=== PATIENT | male | born 1985 | race Caucasian/White ===

== ENCOUNTER 2022-09-03 11:29 | Inpatient (IN) | payer MEDICAID ==
[~2022-09-03] VITALS: Ht 167.6 cm; Wt 83.9 kg
[2022-09-03] MEDS ORDERED: SODIUM CHLORIDE 0.9% 1,000 ML IV ONE (15:30)
[2022-09-03 16:33] LABS: PROTHROMBIN TIME 10.9 sec (9.6-11.0)
[2022-09-03 16:35] LABS: BASOPHILS % 0.4 % (0.0-2.0); EOSINOPHILS % 1.5 % (0.0-5.0); HEMOGLOBIN. 16.8 g/dL (14.0-18.0); LYMPHOCYTES % 41.1 % (20.0-50.0); MEAN CORPUSCULAR HEMOGLOBIN 31.4 pg (28.0-32.0); MEAN CORPUSCULAR VOLUME 89.6 fL (80.0-94.0); MEAN PLATELET VOLUME 7.8 fl (7.4-10.4); MONOCYTES % 8.2 % (2.0-8.0); NEUTROPHILS % 48.8 % (40.0-76.0); PLATELET 251 x1000/uL (130-400); RED BLOOD CELL COUNT 5.35 mill/uL (4.7-6.1); RED CELL DISTRIBUTION WIDTH 13.1 % (11.6-14.6)
[2022-09-03 16:44] LABS: CHLORIDE 105 mEq/L (98-107)
[2022-09-03 16:56] LABS: TOTAL IRON BINDING CAPACITY 339 ug/dL (250-450)
[2022-09-03] MEDS: PANTOPRAZOLE SODIUM 40 MG/VIAL IV SCH (17:13)
[2022-09-03] MEDS ORDERED: ONDANSETRON HCL 4MG/2ML INJ IV PRN (17:30)
[2022-09-03] MEDS ORDERED: CLONIDINE 0.1MG TABLET PO PRN (17:30)
[2022-09-03] MEDS ORDERED: ACETAMINOPHEN 325MG TABLET PO PRN ×2 (17:30)
[2022-09-03 18:14] LABS: HEMATOCRIT 42.2 % (42.0-52.0); HEMOGLOBIN 14.9 g/dL (14.0-18.0)
[2022-09-03 18:20] LABS: FERRITIN 95 ng/mL (22-322)
[2022-09-03 20:24] LABS: CLARITY URINE CLEAR (CLEAR); COLOR URINE YELLOW (YELLOW); KETONES URINE NEGATIVE (NEGATIVE); LEUKOCYTE ESTERASE URINE NEGATIVE (NEGATIVE); NITRITE URINE NEGATIVE (NEGATIVE); OCCULT BLOOD URINE NEGATIVE (NEGATIVE); PH URINE 5.5 (4.5-8.0); PROTEIN URINE NEGATIVE (NEGATIVE); SPECIFIC GRAVITY URINE 1.018 (1.005-1.030); UROBILINOGEN URINE 0.2 E.U./dL (0.2-1.0)
[2022-09-03 20:52] LABS: VITAMIN B12 SERUM 674 pg/mL (211-911)
[2022-09-03] MEDS ORDERED: IOHEXOL-300 100 ML BOTTLE ONE (23:11)
[2022-09-03] MEDS: SODIUM CHLORIDE 0.45% 1,000 ML IV SCH (23:26)
[2022-09-04 00:38] LABS: HEMATOCRIT 41.8 % (42.0-52.0); HEMOGLOBIN 15.1 g/dL (14.0-18.0)
[2022-09-04 03:00] VITALS: BP 130/86
[2022-09-04] MEDS: SODIUM CHLORIDE 0.45% 1,000 ML IV SCH ×2 (04:30→14:27)
[2022-09-04 08:00] VITALS: BP 93/50
[2022-09-04] MEDS: PANTOPRAZOLE SODIUM 40 MG/VIAL IV SCH ×2 (08:18→20:18)
[2022-09-04 09:16] LABS: BASOPHILS % 0.4 % (0.0-2.0); EOSINOPHILS % 2.5 % (0.0-5.0); HEMATOCRIT. 43.6 % (42.0-52.0); HEMOGLOBIN. 15.6 g/dL (14.0-18.0); LYMPHOCYTES % 28.5 % (20.0-50.0); MEAN CORPUSCULAR HEMOGLOBIN 31.9 pg (28.0-32.0); MEAN CORPUSCULAR VOLUME 89.1 fL (80.0-94.0); MEAN PLATELET VOLUME 7.5 fl (7.4-10.4); MONOCYTES % 8.3 % (2.0-8.0); NEUTROPHILS % 60.3 % (40.0-76.0); PLATELET 248 x1000/uL (130-400); RED BLOOD CELL COUNT 4.89 mill/uL (4.7-6.1)
[2022-09-04 09:52] LABS: CHLORIDE 103 mEq/L (98-107)
[2022-09-04 12:00] VITALS: BP 98/50
[2022-09-04] MEDS ORDERED: PANT40TA51 MT (13:11)
[2022-09-04 16:00] VITALS: BP 96/53
[2022-09-04 16:20] LABS: HEMATOCRIT 42.9 % (42.0-52.0); HEMOGLOBIN 15.1 g/dL (14.0-18.0)
[2022-09-04] MEDS ORDERED: SORBITOL 70% SOLN 30ML PO SCH (16:45)
[2022-09-04 16:56] LABS: CHLORIDE 107 mEq/L (98-107)
[2022-09-04] MEDS ORDERED: SORBITOL 70% SOLN 30ML PO NR (17:00)
[2022-09-04] MEDS: METOCLOPRAMIDE HCL 10MG/2ML VIAL IV SCH ×2 (17:14→20:15)
[2022-09-04] MEDS: BISACODYL 5MG TABLET PO SCH ×2 (17:14→20:14)
[2022-09-04 20:00] VITALS: BP 110/56
[2022-09-04] MEDS: DEXT 5%/0.9% NACL KCL 30MEQ/L 1,000 ML IV SCH (20:14)
[2022-09-04] MEDS: SORBITOL 70% SOLN 30ML PO SCH (20:16)
[2022-09-04 20:59] LABS: HEMATOCRIT 46.7 % (42.0-52.0); HEMOGLOBIN 16.1 g/dL (14.0-18.0)
[2022-09-04 21:34] LABS: CHLORIDE 109 mEq/L (98-107)
[2022-09-05] MEDS: METOCLOPRAMIDE HCL 10MG/2ML VIAL IV SCH ×2 (00:40→04:56)
[2022-09-05] MEDS: SODIUM CHLORIDE 0.45% 1,000 ML IV SCH ×2 (00:41→09:52)
[2022-09-05] MEDS: SORBITOL 70% SOLN 30ML PO SCH ×2 (00:54→04:57)
[2022-09-05] MEDS: BISACODYL 5MG TABLET PO SCH ×2 (00:55→04:56)
[2022-09-05] MEDS: DEXT 5%/0.9% NACL KCL 30MEQ/L 1,000 ML IV SCH (02:28)
[2022-09-05 03:21] LABS: BASOPHILS % 0.4 % (0.0-2.0); EOSINOPHILS % 2.6 % (0.0-5.0); HEMATOCRIT. 47.9 % (42.0-52.0); HEMOGLOBIN. 16.7 g/dL (14.0-18.0); LYMPHOCYTES % 31.9 % (20.0-50.0); MEAN CORPUSCULAR HEMOGLOBIN 31.3 pg (28.0-32.0); MEAN CORPUSCULAR VOLUME 89.7 fL (80.0-94.0); MEAN PLATELET VOLUME 7.5 fl (7.4-10.4); MONOCYTES % 9.2 % (2.0-8.0); NEUTROPHILS % 55.9 % (40.0-76.0); PLATELET 268 x1000/uL (130-400); RED BLOOD CELL COUNT 5.34 mill/uL (4.7-6.1); RED CELL DISTRIBUTION WIDTH 12.8 % (11.6-14.6)
[2022-09-05 03:24] LABS: CHLORIDE 108 mEq/L (98-107)
[2022-09-05 03:30] LABS: PROTHROMBIN TIME 11.2 sec (9.6-11.0)
[2022-09-05 08:00] VITALS: BP 99/63
[2022-09-05] MEDS: PANTOPRAZOLE SODIUM 40 MG/VIAL IV SCH (09:52)
[2022-09-05] MEDS ORDERED: MIDAZOLAM HCL 5 MG/5 ML VIAL ONE (11:38)
[2022-09-05] MEDS ORDERED: LIDOCAINE HCL 1% 10 MG/ML 10ML VIAL ONE (11:39)
[2022-09-05] MEDS ORDERED: PROPOFOL 200MG/20ML VIAL IV ONE (11:39)
[2022-09-05] MEDS ORDERED: SIMETHICONE 40 MG/0.6 ML 15ML ONE (11:45)
[2022-09-05 12:00] VITALS: BP 100/61
[2022-09-05] MEDS ORDERED: EPHEDRINE SULFATE 50MG/ML VIAL ONE (12:04)
[2022-09-05] MEDS ORDERED: FENTANYL CITRATE/PF 50MCG/ML 2ML VIAL ONE (12:33)
[2022-09-05] MEDS ORDERED: POTASSIUM CHLORIDE INJ 30 MEQ in DEXT 5%/0.9% NACL 1,000 ML IV SCH (14:00)
[2022-09-05 16:00] VITALS: BP 126/85
[2022-09-05 16:15] VITALS: BP 126/85
== END 2022-09-05 16:27 | disposition home or self-care (01) | DRG 241 ==
LOC: ER 11:29 → EDBEDREQTM 16:41 → EDBEDREQ 16:41 → 6EST 17:31 → EDBEDREQTM 17:49 → EDBEDREQ 17:49
PROVIDERS: ADMIT Internal Medicine; ATTEND Internal Medicine
PROC: 0DBN8ZZ Excision of Sigmoid Colon, Via Natural or Artificial Opening Endoscopic (ICD-10-PCS; principal; 2022-09-05)
PROC: 0DB68ZX Excision of Stomach, Via Natural or Artificial Opening Endoscopic, Diagnostic (ICD-10-PCS; 2022-09-05)
DX: K29.71 Gastritis, unspecified, with bleeding (principal); K20.91 Esophagitis, unspecified with bleeding; K64.8 Other hemorrhoids; E78.00 Pure hypercholesterolemia, unspecified; F17.210 Nicotine dependence, cigarettes, uncomplicated; Z20.822 Contact with and (suspected) exposure to COVID-19; R35.0 Frequency of micturition; K63.5 Polyp of colon; Z90.49 Acquired absence of other specified parts of digestive tract; Z91.14 Patient's other noncompliance with medication regimen
CPT/HCPCS: 36415; 71045; 74177; 76872; 80048; 80053; 81003; 82270; 82607; 82728; 82746; 83036; 83540; 83550; 84153; 85014; 85018; 85025; 85044; 86850; 86900; 87426; 88305; 99285; C9113; J2250; J2704; J2765; J3010; J3480; J3490; J7030; J7042; Q9967; G0103